=== PATIENT | male | born 1985 | race Two or more races ===

== ENCOUNTER → 2025-01-13 | Outpatient (CLI) | payer OTHER, SELFPAY ==
--- NOTE | 2025-01-13 13:22 | XR_ITS ---
EXAMINATION: Ankle, left 3 views. Technique: Ankle AP, oblique, lateral 3 views Date and time of exam: 2024, 1346 hours INDICATIONS: Left ankle pain beginning 3 days ago FINDINGS: No fracture or dislocation No foreign body IMPRESSION: No fracture or dislocation
== END | disposition home or self-care (01) ==
LOC: SDIM 13:14 → CDIM 01-16 14:31
DX: S99.912A Unspecified injury of left ankle, initial encounter (principal); X58.XXXA Exposure to other specified factors, initial encounter
CPT/HCPCS: 73610